=== PATIENT | female | born 1955 | race African-American/Black ===

== ENCOUNTER 2023-10-28 09:31 | Day surgery (SDC) | payer BC ==
[~2023-10-28] VITALS: Ht 160 cm; Wt 57.6 kg
[2023-10-28] MEDS ORDERED: MIDAZOLAM HCL 5 MG/5 ML VIAL ONE (11:41)
[2023-10-28] MEDS ORDERED: fentaNYL CITRATE/PF 100 MCG/2 ML AMP ONE (11:41)
[2023-10-28 15:19] VITALS: O2SAT 98
[2023-10-28 15:25] VITALS: BP_SYST 139; PULSE 90; RESP 16
== END 2023-10-28 14:00 | disposition home or self-care (01) ==
LOC: SDS 09:31 → SMU 09:32 → SDS 14:00
PROVIDERS: ATTEND Surgery
DX: Z43.3 Encounter for attention to colostomy (principal)
CPT/HCPCS: 44388; 99152; 99153; G0378; J2250; J3010